=== PATIENT | female | born 1975 | race Caucasian/White ===

== ENCOUNTER 2017-10-03 12:06 | Emergency (ER) | payer MEDICAID ==
[~2017-10-03] VITALS: Ht 162.6 cm; Wt 92.5 kg
[~2017-10-03 12:06] MED LIST: ESCI5TAB; IBUP800T24 PO; TRAM50TA2 PO
[2017-10-03 13:15] VITALS: BP 130/80
[2017-10-03] MEDS: ALPRAZolam 0.5 MG TAB PO ONE (13:50)
== END 2017-10-03 14:22 | disposition home or self-care (01) ==
LOC: ER 12:21
DX: F41.1 Generalized anxiety disorder (principal); F32.9 Major depressive disorder, single episode, unspecified; Z88.0 Allergy status to penicillin; Z88.2 Allergy status to sulfonamides; Z76.0 Encounter for issue of repeat prescription